=== PATIENT | male | born 1945 | race Hispanic/Latino ===

== ENCOUNTER 2023-10-10 08:05 | Day surgery (SDC) | payer OTHER ==
[~2023-10-10] VITALS: Ht 185.4 cm; Wt 99.8 kg
[2023-10-10] VITALS (11 sets, daily range): BP systolic 121–160; BP diastolic 75–94; PULSE 57–70; RESP 14–18; TEMP 97.1–98.2
[~2023-10-10 08:05] MED LIST: BUME1TAB6 PO; CARV25TA PO; CHOL100046 PO; CILO100T3 PO; CLON0.1T PO; FERR-63 PO; FOLI0.8T41 PO; HYDR100T15 PO; HYDR25 PO; PANT40TA PO; SODI650T PO
[2023-10-10] MEDS ORDERED: AMLO-257 PO (10:20)
[2023-10-10] MEDS ORDERED: SEVE800T27 PO (10:20)
[2023-10-10] MEDS ORDERED: FOLI0.8T41 PO (10:20)
[2023-10-10] MEDS ORDERED: ATOR40TA71 PO (10:20)
[2023-10-10] MEDS ORDERED: CLON0.3T PO (10:20)
[2023-10-10] MEDS ORDERED: TAMS-1 PO (10:20)
[2023-10-10] MEDS ORDERED: PANT40TA54 PO (10:20)
[2023-10-10] MEDS ORDERED: INSLAN SQ (10:32)
[2023-10-10] MEDS: 0.9%NACL 1000ML 1,000 ML IV ONE (10:33)
[2023-10-10] MEDS ORDERED: proPOFol 10 MG/ML 20ML VIAL IV ONE (10:52)
[2023-10-10] MEDS ORDERED: LIDOCAINE HCL 1% 20 ML VIAL ONE (10:53)
[2023-10-24] MEDS ORDERED: TAMS-1 PO (09:33)
== END 2023-10-10 12:25 | disposition home or self-care (01) ==
LOC: DAH 08:05 → ENDO 08:05
PROVIDERS: ATTEND Internal Medicine Gastroenterology
DX: D50.9 Iron deficiency anemia, unspecified (principal); K29.50 Unspecified chronic gastritis without bleeding; K31.A11 Gastric intestinal metaplasia without dysplasia, involving the antrum; D12.3 Benign neoplasm of transverse colon; Q27.33 Arteriovenous malformation of digestive system vessel; K31.89 Other diseases of stomach and duodenum; K22.89 Other specified disease of esophagus; R19.5 Other fecal abnormalities; I42.9 Cardiomyopathy, unspecified; E78.5 Hyperlipidemia, unspecified; Z86.16 Personal history of COVID-19; I12.0 Hypertensive chronic kidney disease with stage 5 chronic kidney disease or end stage renal disease; E11.22 Type 2 diabetes mellitus with diabetic chronic kidney disease; N18.6 End stage renal disease; Z99.2 Dependence on renal dialysis; Z95.0 Presence of cardiac pacemaker; Z98.49 Cataract extraction status, unspecified eye; Z79.4 Long term (current) use of insulin; Z79.899 Other long term (current) drug therapy
CPT/HCPCS: 45378; 43239; 82948; J7030; J2704; A4620; A4215 ×2; A4223; A4222; A4221; A4663; A4606; J3490